=== PATIENT | male | born 1955 | race Caucasian/White ===

== ENCOUNTER 2017-01-11 08:45 | Emergency (ER) | payer BC ==
[2017-01-11] MEDS ORDERED: GABAPENTIN 100 MG CAPSULE PO ONE (10:23)
--- NOTE | 2017-01-11 10:29 | ER Document Report ---
ED General - General Chief Complaint: Leg Pain Stated Complaint: LEG PAIN TRAVEL OUTSIDE OF THE [place] IN LAST 30 DAYS: No - HPI Patient complains to provider of: bilateral chronic leg pain Notes: Patient is coming in for bilateral chronic leg pain over the last 6 months. Patient states he had a procedure performed at [facility] for multiple clots were removed from his leg states since that time his had chronic pain states he is followed up with the surgeon also followed up at local urgent care with no relief of his pain. Of note patient is sitting however able stand and amyloid around the room upon my evaluation. Patient is requesting a prescription for Neurontin. Patient denies any lower back pain numbness tingling. Patient denies any discoloration of his legs denies any trauma. - Related Data Allergies/Adverse Reactions: No Known Allergies Allergy (Unverified 01/11/17 08:57) Past Medical History - Social History Smoking Status: Never Smoker Chew tobacco use (# tins/day): No Frequency of alcohol use: None Drug Abuse: None Family History: Reviewed & Not Pertinent Renal/ Medical History: Denies: Hx Peritoneal Dialysis Past Surgical History: Reports: Hx Vascular Surgery - varicose veins - Immunizations Hx Diphtheria, Pertussis, Tetanus Vaccination: Yes Review of Systems - Review of Systems Constitutional: No symptoms reported EENT: No symptoms reported Cardiovascular: No symptoms reported Respiratory: No symptoms reported Gastrointestinal: No symptoms reported Genitourinary: No symptoms reported Male Genitourinary: No symptoms reported Musculoskeletal: Other - Bilateral leg pain Skin: No symptoms reported Hematologic/Lymphatic: No symptoms reported Neurological/Psychological: No symptoms reported Physical Exam - Vital signs Vitals: Temp Pulse Resp BP Pulse Ox 98.1 F 80 20 174/86 H 98 01/11/17 08:59 01/11/17 08:59 01/11/17 08:59 01/11/17 08:59 01/11/17 08:59 Interpretation: Normal - General General appearance: Appears well, Alert - HEENT Head: Normocephalic, Atraumatic Eyes: Normal Pupils: PERRL - Respiratory Respiratory status: No respiratory distress Chest status: Nontender Breath sounds: Normal Chest palpation: Normal - Cardiovascular Rhythm: Regular Heart sounds: Normal auscultation Murmur: No - Abdominal Inspection: Normal Distension: No distension Bowel sounds: Normal Tenderness: Nontender Organomegaly: No organomegaly - Back Back: Normal, Nontender - Extremities General upper extremity: Normal inspection, Nontender, Normal color, Normal ROM , Normal temperature General lower extremity: Normal inspection, Nontender, Normal color, Normal ROM , Normal temperature, Normal weight bearing, Other - Normal capillary refill no signs of cyanosis bilateral normal dorsalis pedal pulses. No: Monico's sign - Neurological Neuro grossly intact: Yes Cognition: Normal Orientation: AAOx4 [place] Coma Scale Eye Opening: Spontaneous [place] Coma Scale Verbal: Oriented [place] Coma Scale Motor: Obeys Commands Eron Coma Scale Total: 15 Speech: Normal Motor strength normal: LUE, RUE, LLE, RLE Sensory: Normal - Psychological Associated symptoms: Normal affect, Normal mood - Skin Skin Temperature: Warm Skin Moisture: Dry Skin Color: Normal Course - Re-evaluation Re-evalutation: 01/11/17 14:17 Unclear etiology for the patient's chronic pain. Stated that we will start patient on some tramadol and gabapentin. Highly encouraged patient to follow- up with the surgeons and located himself of family physician. A list of family physicians were provided to the patient in the area. - Vital Signs Vital signs: Temp Pulse Resp BP Pulse Ox 98.1 F 64 20 156/90 H 100 01/11/17 10:35 01/11/17 10:35 01/11/17 10:35 01/11/17 10:35 01/11/17 10:35 Discharge - Discharge Clinical Impression: Bilateral leg pain Chronic pain Qualifiers: Chronic pain type: other chronic pain Qualified Code(s): G89.29 - Other chronic pain Condition: Good Disposition: HOME, SELF-CARE Instructions: Leg Pain Nonspecific (OM), Family Physicians / Practices, Oral Narcotic Medication (OM), Chronic Back Pain (OM) Additional Instructions: Take medication as prescribed. Is very important to follow-up with primary care physician for further evaluation of your pain. Prescriptions: Gabapentin [Neurontin 100 mg Capsule] 100 mg PO Q12 #60 capsule Tramadol HCl [Ultram 50 mg Tablet] 50 mg PO ASDIR PRN #14 tablet PRN Reason: Referrals: [facility] [Provider Group] - Follow up as needed
[2017-01-11 10:41] VITALS: BP 156/90
== END 2017-01-11 10:35 | disposition home or self-care (01) ==
LOC: ER 08:45
DX: M79.604 Pain in right leg (principal); M79.605 Pain in left leg; G89.29 Other chronic pain
CPT/HCPCS: 99283

== ENCOUNTER 2017-04-29 11:09 | Observation (INO) | payer BC, MEDICAID ==
[2017-04-29] MEDS ORDERED: HYDROCODONE/ACETAMINOPHEN 5-325 MG TABLET PO ONE (11:58)
--- NOTE | 2017-04-29 12:00 | ER Document Report ---
ED Medical Screen (RME) - General Chief Complaint: Abdominal Pain Stated Complaint: ABDOMINAL PAIN Time Seen by Provider: 04/29/17 11:57 Notes: Patient is a 62-year-old male, unknown past medical history because he has not seen a doctor in several decades, presents with 8 hours of worsening mid abdominal pain that woke him from sleep. Pain is achiness and it is worsening. He has never had this pain in the past. He had a small bowel movement this morning. Denies nausea, vomiting, diarrhea, urinary symptoms, flank pain, chest pain or shortness of breath. PE: diffuse abdominal tenderness, normal bowel sounds, RRR, CTAB I have greeted and performed a rapid initial assessment of this patient. A comprehensive ED assessment and evaluation of the patient, analysis of test results and completion of the medical decision making process will be conducted by additional ED providers. TRAVEL OUTSIDE OF THE [place] IN LAST 30 DAYS: No - Related Data Allergies/Adverse Reactions: No Known Allergies Allergy (Verified 04/29/17 11:11) Home Medications: Current Home Medications No Home Medications 04/29/17 [History] Past Medical History Renal/ Medical History: Denies: Hx Peritoneal Dialysis Past Surgical History: Reports: Hx Vascular Surgery - varicose veins - Immunizations Hx Diphtheria, Pertussis, Tetanus Vaccination: Yes Physical Exam - Vital signs Vitals: Temp Pulse Resp BP Pulse Ox 97.5 F 81 18 159/87 H 98 04/29/17 11:13 04/29/17 11:13 04/29/17 11:13 04/29/17 11:13 04/29/17 11:13 Course - Vital Signs Vital signs: Temp Pulse Resp BP Pulse Ox 97.5 F 81 18 159/87 H 98 04/29/17 11:13 04/29/17 11:13 04/29/17 11:13 04/29/17 11:13 04/29/17 11:13
[2017-04-29 12:55] LABS: ABSOLUTE BASOPHILS # (AUTO) 0.1 10^3/uL (0.0-0.2); ABSOLUTE EOSINOPHILS # (AUTO) 0.3 10^3/uL (0.0-0.6); ABSOLUTE LYMPHOCYTES (AUTO) 1.3 10^3/uL (0.5-4.7); ABSOLUTE MONOCYTES (AUTO) 0.7 10^3/uL (0.1-1.4); ABSOLUTE NEUT (AUTO) 12.3 10^3/uL (1.7-8.2); BASOPHILS % (AUTO) 0.5 % (0-2); EOSINOPHILS % (AUTO) 2.2 % (0-6); HEMATOCRIT 45.9 % (37.9-51.0); HEMOGLOBIN 15.5 g/dL (13.5-17.0); HGB HCT DIFFERENCE 0.6; LYMPHOCYTES % (AUTO) 8.7 % (13-45); MEAN CORPUSCULAR HEMOGLOBIN 29.5 pg (27.0-33.4); MEAN CORPUSCULAR HGB CONC 33.7 g/dL (32.0-36.0); MEAN CORPUSCULAR VOLUME 88 fl (80-97); MONOCYTES % (AUTO) 4.7 % (3-13); RED BLOOD COUNT 5.24 10^6/uL (4.35-5.55); RED CELL DISTRIBUTION WIDTH 13.2 % (11.5-14.0); SEGMENTED NEUTROPHILS % (AUTO) 83.9 % (42-78); WHITE BLOOD COUNT 14.6 10^3/uL (4.0-10.5)
[2017-04-29 13:10] LABS: APPEARANCE,URINE SLIGHTLY-CLOUDY; BILIRUBIN,URINE NEGATIVE (NEGATIVE); GLUCOSE, URINE NEGATIVE (NEGATIVE); KETONES,URINE NEGATIVE (NEGATIVE); LEUKOCYTE ESTERASE,URINE NEGATIVE (NEGATIVE); NITRITE,URINE NEGATIVE (NEGATIVE); PROTEIN,URINE NEGATIVE (NEGATIVE); URINE SPECIFIC GRAVITY 1.019; UROBILINOGEN,URINE NEGATIVE mg/dL (<2.0)
[2017-04-29 13:11] LABS: ALANINE AMINOTRANSFERASE 39 U/L (21-72); ALBUMIN 4.6 g/dL (3.5-5.0); ALKALINE PHOSPHATASE 89 U/L (38-126); ANION GAP 12 (5-19); ASPARTATE AMINO TRANSFERASE 34 U/L (17-59); BILIRUBIN,DIRECT 0.3 mg/dL (0.0-0.4); BILIRUBIN,TOTAL 0.8 mg/dL (0.2-1.3); BLOOD UREA NITROGEN 13 mg/dL (7-20); CALCIUM 9.7 mg/dL (8.4-10.2); CARBON DIOXIDE 28 mmol/L (22-30); CHLORIDE 98 mmol/L (98-107); CREATININE RESULT 0.95 mg/dL (0.52-1.25); GLUCOSE 113 mg/dL (75-110); POTASSIUM 4.9 mmol/L (3.6-5.0); SODIUM 138.3 mmol/L (137-145); TOTAL PROTEIN 8.3 g/dL (6.3-8.2)
--- NOTE | 2017-04-29 13:22 | ER Document Report ---
ED General - General Chief Complaint: Abdominal Pain Stated Complaint: ABDOMINAL PAIN Time Seen by Provider: 04/29/17 11:57 TRAVEL OUTSIDE OF THE [place] IN LAST 30 DAYS: No - HPI Notes: Patient is a 62yo male who presents to the ED c/o abdominal pain that began this morning when it work him up from sleep. Pt states that he was able to eat , drink normally but without any improvement in symptoms. The pain does not radiate and is sharp/achy. Pt states that his pain has been progressively worsening as the day goes on. He did have a normal BM this morning, but states that they are usually hard, small. He did try pepto otc this morning with no relief. Pt does not take any PO medications and has not been seen by a PCM in 10+ years. His PMH is only significant for varicose vein surgical repairs b/l LE's x11. No known drug allergies. Pt denies any recent travel or changes in his diet. No recent illness. Denies any fever, URI, sore throat, headaches, dizziness, cp, syncope, palp, PELAEZ, sob, dyspnea, cough, wheeze, n/v/d, dysuria, hematuria, muscle weakness, or rash. - Related Data Allergies/Adverse Reactions: No Known Allergies Allergy (Verified 04/29/17 11:11) Home Medications: Current Home Medications No Home Medications 04/29/17 [History] Past Medical History - Social History Smoking Status: Never Smoker Family History: Reviewed & Not Pertinent Patient has suicidal ideation: No Patient has homicidal ideation: No Renal/ Medical History: Denies: Hx Peritoneal Dialysis Past Surgical History: Reports: Hx Vascular Surgery - varicose veins - Immunizations Hx Diphtheria, Pertussis, Tetanus Vaccination: Yes Review of Systems - Review of Systems Notes: REVIEW OF SYSTEMS: CONSTITUTIONAL : Denies fever, chills, or sweats. Denies recent illness. EENT: Denies eye, ear, throat, or mouth pain or symptoms. Denies nasal or sinus congestion or discharge. Denies throat, tongue, or mouth swelling or difficulty swallowing. CARDIOVASCULAR: Denies chest pain. Denies palpitations or racing or irregular heart beat. Denies ankle edema. RESPIRATORY: Denies cough, cold, or chest congestion. Denies shortness of breath, difficulty breathing, or wheezing. GASTROINTESTINAL: see hpi GENITOURINARY: Denies difficulty urinating, painful urination, burning, frequency, blood in urine, or discharge. MUSCULOSKELETAL: Denies back or neck pain or stiffness. Denies joint pain or swelling. SKIN: Denies rash, lesions or sores. HEMATOLOGIC : Denies easy bruising or bleeding. LYMPHATIC: Denies swollen, enlarged glands. NEUROLOGICAL: Denies confusion or altered mental status. Denies passing out or loss of consciousness. Denies dizziness or lightheadedness. Denies headache. Denies weakness or paralysis or loss of use of either side. Denies problems with gait or speech. Denies sensory loss, numbness, or tingling. ALL OTHER SYSTEMS REVIEWED AND NEGATIVE. Dictation was performed using [employer] voice recognition software Physical Exam - Vital signs Vitals: Temp Pulse Resp BP Pulse Ox 97.5 F 81 18 159/87 H 98 04/29/17 11:13 04/29/17 11:13 04/29/17 11:13 04/29/17 11:13 04/29/17 11:13 Notes: PHYSICAL EXAMINATION: GENERAL: Well-appearing, well-nourished and in no acute distress. HEAD: Atraumatic, normocephalic. EYES: Pupils equal round and reactive to light, extraocular movements intact, sclera anicteric, conjunctiva are normal. ENT: EAC clear b/l. TM's intact b/l without erythema, fluid, or perforation. Nares patent and without discharge. oropharynx clear without exudates. No tonsilar hypertrophy or erythema. Moist mucous membranes. No sinus tenderness. NECK: Normal range of motion, supple without lymphadenopathy. No rigidity. LUNGS: Breath sounds clear to auscultation bilaterally and equal. No wheezes rales or rhonchi. HEART: Regular rate and rhythm without murmurs, rubs, gallops. ABDOMEN: Soft, non-distended. + tenderness with guarding to the RLQ. + McBurney 's point. Giang negative. Psoas stretch negative. No ascites or pulsatile mass. no bruit's. Musculoskeletal: FROM to passive/active. Strength 5+/5. Extremities: No cyanosis, clubbing, or edema b/l. Peripheral pulses 2+. Capillary refill less than 3 seconds. PSYCH: Normal mood, normal affect. SKIN: Warm, Dry, normal turgor, no rashes or lesions noted. Course - Re-evaluation Re-evalutation: 04/29/17 16:[address] Sharma: Patient is an afebrile, well-hydrated, 62yo male who presents with RLQ tenderness/pain, acute appendicitis based on CT scan and work up. Vitals are stable. CBC showed a 14.6 with a slight left shift. CMP unremarkable. UA unremarkable. 1L NS given IV today. Zosyn IV given. Made NPO. CXR/EKG performed for medical clearance. 2 separate doses of Morphine 5mg IV given. Reviewed with Dr. Chamberlain (surgeon) who will be taking the patient to the OR. Dr. Chamberlain evaluated the patient at approx 1800. - Vital Signs Vital signs: Temp Pulse Resp BP Pulse Ox 97.4 F 87 18 163/74 H 100 04/29/17 15:14 04/29/17 15:14 04/29/17 15:14 04/29/17 15:14 04/29/17 15:14 - Laboratory Result Diagrams: 04/29/17 12:36 04/29/17 12:36 Laboratory results interpreted by me: 04/29/17 04/29/17 12:36 12:36 WBC 14.6 H Seg Neutrophils % 83.9 H Lymphocytes % 8.7 L Absolute Neutrophils 12.3 H Glucose 113 H Total Protein 8.3 H Discharge - Discharge Clinical Impression: Appendicitis Qualifiers: Appendicitis type: acute appendicitis Acute appendicitis type: unspecified acute appendicitis type Qualified Code(s): K35.80 - Unspecified acute appendicitis Condition: Stable Disposition: SAME DAY SURGERY Admitting Provider: Surgicalist - Dr. Chamberlain Unit Admitted: OR
[2017-04-29] MEDS ORDERED: NORMAL SALINE 1000 ML 1,000 ML IV ONE (14:37)
[2017-04-29] MEDS ORDERED: CEFTRIAXONE INJ 1000 MG VIAL IM ONE (14:38)
[2017-04-29] MEDS ORDERED: PIPERACILLIN/TAZOBACTAM 3.375 GM VIAL IV ONE (14:41)
[2017-04-29] MEDS ORDERED: MORPHINE SULFATE 10 MG/ML INJ IV ONE ×2 (14:41→16:21)
[2017-04-29] MEDS ORDERED: CEFTRIAXONE 1 GM/D5W RTU 50 ML IV ONE (14:42)
--- NOTE | 2017-04-29 15:00 | RADIOLOGY REPORT (SQ) ---
EXAM DESCRIPTION: CT ABD/PELVIS WITH IV ONLY COMPLETED DATE/TIME: 04/29/2017 2:33 pm REASON FOR STUDY: RLQ tenderness/pain COMPARISON: None. TECHNIQUE: CT scan of the abdomen and pelvis performed using helical scanning technique with dynamic intravenous contrast injection. No oral contrast. Images reviewed with lung, soft tissue, and bone windows. Reconstructed coronal and sagittal MPR images reviewed. Delayed images for evaluation of the urinary system also acquired. All images stored on PACS. All CT scanners at this facility use dose modulation, iterative reconstruction, and/or weight based d osing when appropriate to reduce radiation dose to as low as reasonably achievable (ALARA). [facility]: Dose Right [facility]: CareDose [facility]: Dose Right [facility]: Teradose 4D [facility]: Green Genes CONTRAST TYPE AND DOSE: contrast/concentration: Isovue 370.00 mg/ml; Total Contrast Delivered: 98.0 ml; Total Saline Delivered: 52.0 ml RENAL FUNCTION: Creatinine 1 BUN 13 RADIATION DOSE: Up-to-date CT equipment and radiation dose reduction techniques were employed. CTDIv ol: 7.8 - 11.0 mGy. DLP: 1044 mGy-cm.. LIMITATIONS: None. FINDINGS: LOWER CHEST: No significant findings. No nodules or infiltrates. LIVER: Normal size. No masses. No dilated ducts. SPLEEN: Normal size. No focal lesions. PANCREAS: No masses. No significant calcifications. No adjacent inflammation or peripancreatic fluid collections. Pancreatic duct not dilated. GALLBLADDER: No identified stones by CT criteria. No inflammatory changes to suggest cholecystitis. ADRENAL GLANDS: No significant masses or asymmetry. RIGHT KIDNEY AND URETER: No solid masses. No significant calcifications. No hydronephrosis or hyd roureter. LEFT KIDNEY AND URETER: No solid masses. No significant calcifications. No hydronephrosis or hydr oureter. AORTA AND VESSELS: No aneurysm. No dissection. Renal arteries, SMA, celiac without stenosis. RETROPERITONEUM: No retroperitoneal adenopathy, hemorrhage or masses. BOWEL AND PERITONEAL CAVITY: Diverticula are scattered through the colon with no acute associated in flammatory changes. APPENDIX: The appendix appears to be thickened to 13 mm. There is stranding in the periappendiceal f at. See axial images 60 through 68. PELVIS: No mass or free fluid. Normal bladder. ABDOMINAL WALL: No masses. No hernias. BONES: No significant or acute findings. OTHER: No other significant finding. IMPRESSION: 1. Appendicitis. 2. Diverticulosis coli. TECHNICAL DOCUMENTATION: JOB ID: [id number] Quality ID # [id number]: Final reports with documentation of one or more dose reduction techniques (e.g., Au tomated exposure control, adjustment of the mA and/or kV according to patient size, use of iterative reconstruction technique) 2010 [employer]- All Rights Reserved
--- NOTE | 2017-04-29 16:11 | RADIOLOGY REPORT (SQ) ---
EXAM DESCRIPTION: CHEST PA/LAT COMPLETED DATE/TIME: 04/29/2017 3:53 pm REASON FOR STUDY: medical clearance for surgery COMPARISON: None. EXAM PARAMETERS: NUMBER OF VIEWS: two views TECHNIQUE: Digital Frontal and Lateral radiographic views of the chest acquired. RADIATION DOSE: NA LIMITATIONS: none FINDINGS: LUNGS AND PLEURA: No opacities, masses or pneumothorax. No pleural effusion. MEDIASTINUM AND HILAR STRUCTURES: No masses or contour abnormalities. HEART AND VASCULAR STRUCTURES: Heart normal size. No evidence for failure. BONES: No acute findings. HARDWARE: None in the chest. OTHER: No other significant finding. IMPRESSION: NO SIGNIFICANT RADIOGRAPHIC FINDING IN THE CHEST. TECHNICAL DOCUMENTATION: JOB ID: [id number] [employer]- All Rights Reserved
--- NOTE | 2017-04-29 18:22 | PDOC H&P ---
History of Present Illness Admission Date/PCP: 04/29/2017 Patient complains of: Right lower quadrant abdominal pain History of Present Illness: LEONELA THOMPSON is a 62 year old male presented to the emergency room this a.m. with complaints of sudden onset of right lower quadrant abdominal pain. Patient stated that he woke up about 3 AM and was having "excruciating pain in his right lower quadrant periumbilical area. He stated that he felt totally normal yesterday. He denied any fever, chills, sweats. The patient stated that he had a bowel movement this morning it was somewhat dark but not melanotic. He stated that his pain increased over the morning and he decided not to go to work because of it. He has not had any vomiting but has had nausea until just a few minutes ago where he began to have episodes of vomiting. The patient underwent a CT scan of the abdomen and pelvis that revealed a 13 mm in diameter appendix with evidence of surrounding periappendiceal stranding. Past Medical History Cardiac Medical History: Reports: None, Other - Venous insufficiency of the lower extremities bilaterally Pulmonary Medical History: Reports: None EENT Medical History: Reports: None Neurological Medical History: Reports: None Endocrine Medical History: Reports: None Renal/ Medical History: Reports: None Malignancy Medical History: Reports: None GI Medical History: Reports: None Musculoskeltal Medical History: Reports: None Skin Medical History: Reports: None Psychiatric Medical History: Reports: None Traumatic Medical History: Reports: None Hematology: Reports: None Infectious Medical History: Reports: None Past Surgical History Past Surgical History: Reports: Vascular Surgery - varicose veins, Other - Cataract surgery Ablation of varicosities lower extremities bilaterally Social History Smoking Status: Former Smoker Frequency of Alcohol Use: Heavy Amount of Alcoholic Beverages Per Day: 1 case of beer per week for 10 years quit in 1976 Hx Recreational Drug Use: Yes - LSD, marijuana Drugs: Marijuana, Other - LSD Family History Family History: Reviewed & Not Pertinent Parental Family History Reviewed: Yes Children Family History Reviewed: No Sibling(s) Family History Reviewed.: No Medication/Allergy Home Medications: No Home Medications 04/29/17 Allergies/Adverse Reactions: No Known Allergies Allergy (Verified 04/29/17 11:11) Review of Systems Constitutional: PRESENT: as per HPI Eyes: ABSENT: visual disturbances Ears: ABSENT: hearing changes Nose, Mouth, and Throat: PRESENT: as per HPI Breasts: PRESENT: as per HPI Cardiovascular: PRESENT: as per HPI Respiratory: PRESENT: as per HPI Gastrointestinal: PRESENT: abdominal pain, nausea, vomiting Genitourinary: ABSENT: dysuria, hematuria Musculoskeletal: ABSENT: joint swelling Integumentary: ABSENT: rash, wounds Neurological: ABSENT: abnormal gait, abnormal speech, confusion, dizziness, focal weakness, syncope Psychiatric: ABSENT: anxiety, depression, homidical ideation, suicidal ideation Endocrine: ABSENT: cold intolerance, heat intolerance, polydipsia, polyuria Hematologic/Lymphatic: ABSENT: easy bleeding, easy bruising Allergic/Immunologic: PRESENT: as per HPI Physical Exam Vital Signs: Temp Pulse Resp BP Pulse Ox 97.4 F 87 18 163/74 H 100 04/29/17 15:14 04/29/17 15:14 04/29/17 15:14 04/29/17 15:14 04/29/17 15:14 Intake & Output 04/28/17 04/29/17 04/30/17 06:59 06:59 06:59 Weight 90 kg General appearance: PRESENT: cooperative, mild distress, well-developed, well- nourished Head exam: PRESENT: atraumatic Eye exam: PRESENT: conjunctiva pink, EOMI, PERRLA. ABSENT: scleral icterus Ear exam: PRESENT: normal external ear exam Mouth exam: PRESENT: moist, tongue midline Neck exam: ABSENT: carotid bruit, JVD, lymphadenopathy, thyromegaly Respiratory exam: PRESENT: clear to auscultation bismark. ABSENT: rales, rhonchi, wheezes Cardiovascular exam: PRESENT: RRR. ABSENT: diastolic murmur, rubs, systolic murmur Pulses: PRESENT: normal dorsalis pedis pul Vascular exam: PRESENT: normal capillary refill GI/Abdominal exam: PRESENT: guarding, hypoactive bowel sounds, tenderness, other - Patient is positive for guarding in the right lower quadrant, periumbilical area, positive McBurney sign, negative psoas sign, negative obturator sign, negative heel tap, negative Rovsing sign Rectal exam: PRESENT: deferred Extremities exam: PRESENT: full ROM. ABSENT: calf tenderness, clubbing, pedal edema Neurological exam: PRESENT: alert, awake, oriented to person, oriented to place , oriented to time, oriented to situation, CN II-XII grossly intact. ABSENT: motor sensory deficit Psychiatric exam: PRESENT: appropriate affect, normal mood. ABSENT: homicidal ideation, suicidal ideation Skin exam: PRESENT: dry, intact, warm. ABSENT: cyanosis, rash Results Laboratory Results: 04/29/17 12:36 04/29/17 12:36 04/29/17 04/29/17 04/29/17 12:36 12:36 12:36 WBC 14.6 H RBC 5.24 Hgb 15.5 Hct 45.9 MCV 88 MCH 29.5 MCHC 33.7 RDW 13.2 Plt Count 300 Seg Neutrophils % 83.9 H Lymphocytes % 8.7 L Monocytes % 4.7 Eosinophils % 2.2 Basophils % 0.5 Absolute Neutrophils 12.3 H Absolute Lymphocytes 1.3 Absolute Monocytes 0.7 Absolute Eosinophils 0.3 Absolute Basophils 0.1 Sodium 138.3 Potassium 4.9 Chloride 98 Carbon Dioxide 28 Anion Gap 12 BUN 13 Creatinine 0.95 Est GFR ( Amer) > 60 Est GFR (Non-Af Amer) > 60 Glucose 113 H Lactic Acid 1.2 Calcium 9.7 Total Bilirubin 0.8 AST 34 ALT 39 Alkaline Phosphatase 89 Total Protein 8.3 H Albumin 4.6 Lipase 74.0 Urine Color Urine Appearance Urine pH Ur Specific [place] Urine Protein Urine Glucose (UA) Urine Ketones Urine Blood Urine Nitrite Ur Leukocyte Esterase Urine WBC (Auto) Urine RBC (Auto) 04/29/17 12:36 WBC RBC Hgb Hct MCV MCH MCHC RDW Plt Count Seg Neutrophils % Lymphocytes % Monocytes % Eosinophils % Basophils % Absolute Neutrophils Absolute Lymphocytes Absolute Monocytes Absolute Eosinophils Absolute Basophils Sodium Potassium Chloride Carbon Dioxide Anion Gap BUN Creatinine Est GFR ( Amer) Est GFR (Non-Af Amer) Glucose Lactic Acid Calcium Total Bilirubin AST ALT Alkaline Phosphatase Total Protein Albumin Lipase Urine Color YELLOW Urine Appearance SLIGHTLY-CLOUDY Urine pH 5.0 Ur Specific [place] 1.019 Urine Protein NEGATIVE Urine Glucose (UA) NEGATIVE Urine Ketones NEGATIVE Urine Blood NEGATIVE Urine Nitrite NEGATIVE Ur Leukocyte Esterase NEGATIVE Urine WBC (Auto) 1 Urine RBC (Auto) 0 Impressions: Abdomen/Pelvis CT 04/29/17 13:16 IMPRESSION: 1. Appendicitis. 2. Diverticulosis coli. Chest X-Ray 04/29/17 15:29 IMPRESSION: NO SIGNIFICANT RADIOGRAPHIC FINDING IN THE CHEST. Status: Image reviewed by me - Appendix appears to be retrocecal Assessment & Plan - Time Time Spent: 50 to 70 Minutes Medications reviewed and adjusted accordingly: Yes Anticipated discharge: Home Within: within 24 hours Assessment/Plan - Assessment/Plan Assessment: Acute appendicitis Plan: Laparoscopic appendectomy possible conventional appendectomy The possible risks and complications of procedure were reviewed with the patient including bleeding, infection, injury to bowel, bladder, major arteries or veins, solid or hollow organs, abscess, delayed abscess, leak from appendiceal stump staple line, . He understands accepts the possible risk and complication of the procedure.
[2017-04-29] MEDS ORDERED: LIDOCAINE 1%/EPINEPHRINE INJ 20 ML VIAL ONE (18:41)
[2017-04-29] MEDS ORDERED: MIDAZOLAM 2 MG/2 ML INJ ONE (18:57)
[2017-04-29] MEDS ORDERED: PROPOFOL INJ 200 MG/20 ML VIAL IV ONE (18:57)
[2017-04-29] MEDS ORDERED: MORPHINE SULFATE 10 MG/ML INJ ONE (18:57)
[2017-04-29] MEDS ORDERED: FENTANYL CITRATE INJ/PF 250 MCG/5 ML AMPULE ONE (18:57)
[2017-04-29] MEDS ORDERED: PROMETHAZINE HCL INJ 25 MG/1 ML VIAL IV PRN ×2 (19:46)
[2017-04-29] MEDS ORDERED: MORPHINE SULFATE 10 MG/ML INJ IV PRN (19:46)
[2017-04-29] MEDS ORDERED: MEPERIDINE HCL/PF INJ 25 MG/1 ML DISP.SYRIN IV PRN (19:46)
[2017-04-29] MEDS ORDERED: DIPHENHYDRAMINE HCL 50 MG/ML VIAL IV PRN (19:46)
[2017-04-29] MEDS ORDERED: OXYCODONE-ACETAMINOPHEN 5-325 MG TABLET PO PRN ×3 (19:46→20:38)
[2017-04-29] MEDS ORDERED: FENTANYL CITRATE INJ/PF 100 MCG/2 ML AMPUL IV PRN ×3 (19:46)
--- NOTE | 2017-04-29 20:37 | Operative Report ---
Operative Report DATE OF SURGERY: 04/29/17 PREOPERATIVE DIAGNOSIS: Acute appendicitis, retrocecal POSTOPERATIVE DIAGNOSIS: Acute suppurative appendicitis OPERATION: Laparoscopic appendectomy SURGEON: GIOVANY MORALEZ 1ST CEO AND PRESIDENT: LATRICE GALAN ANESTHESIA: GA TISSUE REMOVED OR ALTERED: Appendix COMPLICATIONS: None ESTIMATED BLOOD LOSS: 5cc INTRAOPERATIVE FINDINGS: Acute appendicitis, retrocecal with a good deal of purulent fluid surrounding the right colonic gutter and overlying the terminal ileum as well as in the pelvis PROCEDURE: 04/29/2017 this 62-year-old white male was taken the operating placed supine position after adequate general anesthesia via endotracheal tube was prepped with DuraPrep draped in sterile fashion. An infraumbilical incision was made with a scalpel through skin subtenons tissue. A Veress needle was advanced all the way of the abdomen with the anterior abdominal wall elevated between the surgeon and investigative assistant fingers. The Veress needle was aspirated with 3 cc syringe there was no blood or bile fluid aspirated. A pneumoperitoneum was then created with approximately 4.5 L carbon dioxide. The varies needle was then removed and a 10 mm Optiview trocar through trocar sleeve was advanced all layers of the abdomen under direct visualization through the laparoscope. Once into the peritoneal cavity the laparoscope and trocar removed and the laparoscope was reinserted through the sleeve. Patient was placed in the Trendelenburg position and rotated to the left. A 5 mm trocar through trocar sleeve was placed in the right lower quadrant at McBurney's point under direct visualization to the laparoscope. Trocar removed and a [place] laparoscopic forceps advanced to the sleeve. A 12 mm trocar through trocar sleeve was then placed in the left lower quadrant lateral to the anterior rectus muscle which was transilluminated to reveal the superficial epigastric vessels which were kept out of harm's way. The trocar was inserted under direct visualization to laparoscope the trocar removed and the LigaSure advance of the sleeve. The small bowel was then moved in a cephalad position above the cecum. The tip of the appendix was then noted in the right colonic gutter. It was grasped and placed on traction and found to be retro-cecal and retroperitoneal. Currently the peritoneum was incised utilizing the LigaSure. It was bluntly dissected cephalad and caudad exposing the midportion of the appendix as it coursed toward the cecum. Once this area was identified the mesoappendix was then divided utilizing LigaSure toward the avascular window at the base of the appendix. Finally the avascular window was opened and the remaining mesial appendix with appendiceal artery was treated with the ultrasonic device and divided. A Endo PHUC was then advanced to the 12 mm trocar port and fired across the base of the appendix. Once fired the stapling device was removed the appendix placed in a [place] bag and removed out the 12 mm trocar port site. It was passed off the operative field and sent to pathology for further evaluation. The staple line was then inspected and irrigated with no evidence of leak noted. There was no bleeding noted. The large amount of purulent drainage was then collected in the Luken's trap passed off the operative field sent to pathology and microbiology for Gram stain C&S. The abdomen was then irrigated with approximately 2 L of saline solution and evacuated with pool suction care taken to aspirate all the fluid in the right hepatic gutter perihepatic space in the pelvis. Once this was performed the patient was placed in the supine position the 5 mm trochars removed under direct visualization to the laparoscope. The pneumoperitoneum was relieved the 12 mm trocar removed under direct visualization to the laparoscope there is no bleeding or omentum withdrawn with the instrument and finally the infraumbilical trocar sleeve removed under direct visualization to laparoscope there was no omentum or bowel withdrawal of the instrument. Attention was turned to the incision in the left lower quadrant a 2-0 Vicryl suture was placed as a single interrupted suture along the external oblique fascia. The skin edges then approximated utilizing interrupted subcuticular sutures of 4-0 Monocryl Steri-Strips were placed of the wound patient taken off the operating table placed on a cart and taken to the recovery area in satisfactory condition Gross pathology: 62-year-old white male presented with pain since this a.m. CT scan revealing acute appendicitis. It was noted to be retrocecal and possibly retroperitoneal. Operative pathology: Included a retroperitoneal retrocecal appendix with a good deal of purulent suppurative fluid within the abdominal cavity especially in the right gutter and in between the bowel loops as they course toward the terminal ileum. The remaining intra-abdominal structures appeared normal under limited laparoscopic exam. The appendix was large in diameter but without evidence of perforation.
[2017-04-29] MEDS ORDERED: ONDANSETRON HCL INJ/PF 4 MG/2 ML SDV IV PRN (20:38)
[2017-04-29] MEDS ORDERED: NORMAL SALINE 1000 ML 1,000 ML IV PRN (20:38)
[2017-04-29] MEDS ORDERED: ACETAMINOPHEN 325 MG TABLET PO PRN (20:38)
[2017-04-29] MEDS ORDERED: HYDROMORPHONE HCL INJ/PF 2 MG/ML AMPULE IV PRN (20:47)
[2017-04-29] MEDS ORDERED: NALOXONE HCL INJ/PF 0.4 MG/1 ML SDV ONE (20:48)
[2017-04-29] MEDS ORDERED: METOCLOPRAMIDE HCL INJ/PF 10 MG/2 ML SDV ONE (21:00)
[2017-04-29] MEDS ORDERED: LIDOCAINE 0.5%/EPINEPHRINE INJ 50 ML VIAL ONE (21:01)
[2017-04-29] MEDS ORDERED: ONDANSETRON HCL INJ/PF 4 MG/2 ML SDV ONE (21:01)
[2017-04-29] MEDS ORDERED: PROMETHAZINE HCL INJ 25 MG/1 ML VIAL ONE (21:22)
--- NOTE | 2017-04-29 21:25 | EKG REPORT ---
SEVERITY:- NORMAL ECG - SINUS RHYTHM : Confirmed by: Radha Jacobo 29-Apr-2017 21:24:42
[2017-04-29] MEDS ORDERED: CIPROFLOXACIN 400 MG/D5W RTU 400 MG/200 ML RTUPB IV ONE (23:06)
[2017-04-29] MEDS ORDERED: METRONIDAZOLE 500 MG/NS RTU 100 ML IV ONE ×2 (23:06→23:07)
[2017-04-29] MEDS: METRONIDAZOLE 500 MG/NS RTU 100 ML IV SCH (23:12)
[2017-04-29] MEDS: CIPROFLOXACIN 400 MG/D5W RTU 200 ML IV SCH (23:12)
[2017-04-30] MEDS: METRONIDAZOLE 500 MG/NS RTU 100 ML IV SCH ×3 (05:03→21:03)
[2017-04-30] MEDS ORDERED: SUCCINYLCHOLINE CHLORIDE INJ 200 MG/10 ML VIAL ONE (08:41)
[2017-04-30] MEDS ORDERED: DEXAMETHASONE SOD PHOSPHATE INJ 4 MG/1 ML VIAL ONE (08:41)
[2017-04-30] MEDS ORDERED: GLYCOPYRROLATE INJ 0.4 MG/2 ML VIAL ONE (08:41)
[2017-04-30] MEDS ORDERED: ONDANSETRON HCL INJ/PF 4 MG/2 ML SDV ONE (08:41)
[2017-04-30] MEDS ORDERED: ROCURONIUM BROMIDE INJ 50 MG/5 ML VIAL IV ONE (08:41)
[2017-04-30] MEDS ORDERED: NEOSTIGMINE METHYLSULFATE 10 MG/10 ML VIAL ONE (08:41)
[2017-04-30] MEDS: CIPROFLOXACIN 400 MG/D5W RTU 200 ML IV SCH ×2 (09:11→21:52)
--- NOTE | 2017-04-30 09:45 | PDOC PROGRESS REPORT ---
Subjective Progress Note for:: 04/30/17 Subjective:: Had some nausea and some generalized weakness. Does not want to go home. Pain is much improved. Physical Exam Vital Signs: Temp Pulse Resp BP Pulse Ox 98.1 F 80 18 110/59 L 98 04/30/17 07:05 04/30/17 07:05 04/30/17 07:05 04/30/17 07:05 04/30/17 07:05 Intake & Output 04/29/17 04/30/17 05/01/17 06:59 06:59 06:59 Intake Total 1875 Output Total 0 Balance 1875 Weight 89.6 kg General appearance: PRESENT: no acute distress, cooperative Respiratory exam: PRESENT: clear to auscultation [place] Cardiovascular exam: PRESENT: RRR GI/Abdominal exam: PRESENT: other - Soft, nondistended, minimal abdominal tenderness. Wounds clean dry and intact. Results Impressions: Abdomen/Pelvis CT 04/29/17 13:16 IMPRESSION: 1. Appendicitis. 2. Diverticulosis coli. Chest X-Ray 04/29/17 15:29 IMPRESSION: NO SIGNIFICANT RADIOGRAPHIC FINDING IN THE CHEST. Assessment & Plan - Diagnosis (1) Appendicitis Qualifiers: Appendicitis type: acute appendicitis Acute appendicitis type: unspecified acute appendicitis type Qualified Code(s): K35.80 - Unspecified acute appendicitis Is this a current diagnosis for this admission?: YesPlan: Status post laparoscopic appendectomy. Looks reasonably well. Encourage ambulation. Hold off diet until his nausea has resolved. Keep on IV antibiotics in light of the pus found during surgery.
[2017-04-30 21:32] LABS: HEMATOCRIT 36.9 % (37.9-51.0); HGB HCT DIFFERENCE -1.2; MEAN CORPUSCULAR HEMOGLOBIN 28.9 pg (27.0-33.4); MEAN CORPUSCULAR HGB CONC 32.4 g/dL (32.0-36.0); MEAN CORPUSCULAR VOLUME 89 fl (80-97); RED BLOOD COUNT 4.12 10^6/uL (4.35-5.55); RED CELL DISTRIBUTION WIDTH 13.5 % (11.5-14.0)
[2017-04-30 21:45] LABS: HEMOGLOBIN 11.9 g/dL (13.5-17.0)
[2017-04-30 21:47] LABS: BAND NEUTROPHILS % (MANUAL) 3 % (3-5); BASOPHILS % (MANUAL) 0 % (0-2); EOSINOPHILS % (MANUAL) 0 % (0-6); LYMPHOCYTES % (MANUAL) 8 % (13-45); TOTAL CELLS COUNTED 100
[2017-04-30 21:48] LABS: RBC MORPHOLOGY COMMENT NORMO-CYTIC/CHROMIC
[2017-04-30 21:50] LABS: TOXIC GRANULATION SLIGHT
[2017-05-01] MEDS: METRONIDAZOLE 500 MG/NS RTU 100 ML IV SCH (05:17)
--- NOTE | 2017-05-01 10:34 | PDOC DISCHARGE SUMMARY ---
General - Admit/Disc Date/PCP Admission Date/Primary Care Provider: 04/29/17 20:38 Discharge Date: 05/01/17 - Discharge Diagnosis (1) Appendicitis Is this a current diagnosis for this admission?: YesSummary: Patient underwent laparoscopic appendectomy on 04/29/2017. His postoperative course was uneventful. She is able to tolerate a soft diet on the day of discharge and passing a lot of flatus under date of discharge also a note was given to him for return to work. Also prescription for Percocet 1 every 6 hours as needed for pain. Patient is going to be seen in the surgical clinic in 2 weeks. - Additional Information Resuscitation Status: Full Code Discharge Diet: Regular Discharge Activity: No Driving, No Lifting Over 10 Pounds, No Lifting/Push/ Pulling, Slowly Increase Activity Home Medications: Oxycodone HCl/Acetaminophen [Percocet 5-325 mg Tablet] 1 tab PO Q6HP PRN #15 tablet 05/01/17 History of Present Illness Patient complains of: Complaint of abdominal pains just prior to admission. History of Present Illness: LEONELA THOMPSON is a 62 year old male Complaining of abdominal pain just prior to going to the emergency room. CAT scan in the emergency room showed acute appendicitis. Patient was then taken to the OR for laparoscopic appendectomy on 04/29/2017. His postoperative course was uneventful and tolerating regular diet on 04/29/2017. Also had large flatus on the day of discharge. Physical Exam Vital Signs: Temp Pulse Resp BP Pulse Ox 97.2 F 89 16 122/65 94 05/01/17 07:12 05/01/17 07:12 05/01/17 07:12 05/01/17 07:12 05/01/17 07:12 Intake & Output 04/30/17 05/01/17 05/02/17 06:59 06:59 06:59 Intake Total 1875 3272 Output Total 0 750 Balance 1875 2522 Weight 89.6 kg 90.1 kg Exam: Admission had tenderness in the right lower quadrant compatible with acute appendicitis. Results Laboratory Results: 04/30/17 21:00 04/30/17 21:00 WBC 21.0 H RBC 4.12 L Hgb 11.9 L D Hct 36.9 L MCV 89 MCH 28.9 MCHC 32.4 RDW 13.5 Plt Count 216 Seg Neutrophils % Not Reportable Lymphocytes % Not Reportable Monocytes % Not Reportable Eosinophils % Not Reportable Basophils % Not Reportable Absolute Neutrophils Not Reportable Absolute Lymphocytes Not Reportable Absolute Monocytes Not Reportable Absolute Eosinophils Not Reportable Absolute Basophils Not Reportable Impressions: Abdomen/Pelvis CT 04/29/17 13:16 IMPRESSION: 1. Appendicitis. 2. Diverticulosis coli. Chest X-Ray 04/29/17 15:29 IMPRESSION: NO SIGNIFICANT RADIOGRAPHIC FINDING IN THE CHEST. Qualifiers PATEINT BEING DISCHARGED WITH ANY OF THE FOLLOWING DIAGNOSIS?: No
[2017-05-01] MEDS: CIPROFLOXACIN 400 MG/D5W RTU 200 ML IV SCH (10:52)
[2017-05-01 13:27] VITALS: BP 130/72
== END 2017-05-01 14:06 | disposition home or self-care (01) ==
LOC: ER 11:09 → EH 18:35 → UNDOADMOB 18:35 → INTOOBSV 18:35 → EH 20:38 → 4N 22:19
PROC: 0DTJ4ZZ Resection of Appendix, Percutaneous Endoscopic Approach (ICD-10-PCS; principal; 2017-04-29 19:00)
DX: K35.80 Unspecified acute appendicitis (principal); R14.3 Flatulence; K57.90 Diverticulosis of intestine, part unspecified, without perforation or abscess without bleeding; Z87.891 Personal history of nicotine dependence; F16.90 Hallucinogen use, unspecified, uncomplicated; F12.90 Cannabis use, unspecified, uncomplicated
CPT/HCPCS: 93005; 96376; 99285; 96375; 96365; 36415 ×2; 87205; 87070; 83605; 83690; 85025 ×2; 87075; 87077; 80053; 81001; 87186; 88304 ×2; 71020; 74177; 94799; 93010; 44970; G0378 ×4; J2250; J3490 ×2; J1100; J3010; J2765; J2270; J2310; J1170; J2550; J0330; J2405 ×2; J7030; J2704; J0744 ×2; J2543; 840

== ENCOUNTER 2017-10-21 12:34 | Emergency (ER) | payer MEDICAID ==
[2017-10-21] MEDS ORDERED: IBUPROFEN 800 MG TABLET PO ONE (13:43)
--- NOTE | 2017-10-21 15:55 | ER Document Report ---
ED General - General Chief Complaint: Arm Pain Stated Complaint: ARM PAIN Time Seen by Provider: 10/21/17 13:23 TRAVEL OUTSIDE OF THE [place] IN LAST 30 DAYS: No - Related Data Allergies/Adverse Reactions: No Known Allergies Allergy (Verified 10/21/17 12:35) Past Medical History - General Information source: Patient - Social History Smoking Status: Former Smoker Cigarette use (# per day): No Chew tobacco use (# tins/day): No Smoking Education Provided: No Frequency of alcohol use: None Drug Abuse: None Lives with: Family Family History: Reviewed & Not Pertinent Patient has suicidal ideation: No Patient has homicidal ideation: No - Past Medical History Cardiac Medical History: Reports: None Pulmonary Medical History: Reports: Other - Electric wire through his chest EENT Medical History: Reports: Eyes - Nails to both eyes but did not lose vision Neurological Medical History: Reports: None Endocrine Medical History: Reports: None Renal/ Medical History: Reports: None Malignancy Medical History: Reports None GI Medical History: Reports: None Musculoskeltal Medical History: Reports Hx Arthritis, Reports Hx Musculoskeletal Deformity, Reports Hx Musculoskeletal Trauma, Reports Other - pole into his shoulder dislocating his shoulder, Psychiatric Medical History: Denies: Hx Depression Past Surgical History: Reports: Hx Appendectomy, Hx Vascular Surgery - varicose veins, Other - Cataract surgery Ablation of varicosities lower extremities bilaterally - Immunizations Hx Diphtheria, Pertussis, Tetanus Vaccination: Yes Review of Systems - Review of Systems Constitutional: No symptoms reported EENT: No symptoms reported Cardiovascular: No symptoms reported Respiratory: No symptoms reported Gastrointestinal: No symptoms reported Genitourinary: No symptoms reported Male Genitourinary: No symptoms reported Musculoskeletal: Back pain, Other - Intermittent pain down right arm both legs and hips no fall no injuries Skin: No symptoms reported Hematologic/Lymphatic: No symptoms reported Neurological/Psychological: No symptoms reported Physical Exam - Vital signs Vitals: Temp Pulse Resp BP Pulse Ox 98.3 F 80 20 155/90 H 97 10/21/17 12:49 10/21/17 12:49 10/21/17 12:49 10/21/17 12:49 10/21/17 12:49 Interpretation: Normal - General General appearance: Appears well, Alert - HEENT Head: Normocephalic, Atraumatic Eyes: Normal Pupils: PERRL - Respiratory Respiratory status: No respiratory distress Chest status: Nontender Breath sounds: Normal Chest palpation: Normal - Cardiovascular Rhythm: Regular Heart sounds: Normal auscultation Murmur: No - Abdominal Inspection: Normal Distension: No distension Bowel sounds: Normal Tenderness: Nontender Organomegaly: No organomegaly - Back Back: Normal, Tender, Vertebra tenderness. No: Deformity/step-off, CVA tenderness, Scars, Scoliosis, Other Notes: No signs of cauda equina, no loss of control of bowel bladder, no loss of sensation to the legs, no saddle anesthesia, and no loss of control of the legs. - Extremities General upper extremity: Normal inspection, Nontender, Normal color, Normal ROM , Normal temperature General lower extremity: Normal inspection, Nontender, Normal color, Normal ROM , Normal temperature, Normal weight bearing. No: Monico's sign - Neurological Neuro grossly intact: Yes Cognition: Normal Orientation: AAOx4 [place] Coma Scale Eye Opening: Spontaneous [place] Coma Scale Verbal: Oriented [place] Coma Scale Motor: Obeys Commands Eron Coma Scale Total: 15 Speech: Normal Motor strength normal: LUE, RUE, LLE, RLE Sensory: Normal - Psychological Associated symptoms: Normal affect, Normal mood - Skin Skin Temperature: Warm Skin Moisture: Dry Skin Color: Normal Course - Re-evaluation Re-evalutation: 10/21/17 16:16 Patient given instructions on his care for his degenerative back disease with arthritis. Patient was given a copy of his x-rays to follow-up with his primary doctor and with a back specialist. He was encouraged to use anti- inflammatories ice heat and back exercises. - Vital Signs Vital signs: Temp Pulse Resp BP Pulse Ox 98.3 F 80 20 155/90 H 97 10/21/17 12:49 10/21/17 12:49 10/21/17 12:49 10/21/17 12:49 10/21/17 12:49 - Diagnostic Test Radiology reviewed: Image reviewed, Reports reviewed Discharge - Discharge Clinical Impression: Pain in right arm, Degenerative disc disease, cervical Low back pain with bilateral sciatica Qualifiers: Chronicity: chronic Back pain laterality: bilateral Qualified Code(s): M54.42 - Lumbago with sciatica, left side; M54.41 - Lumbago with sciatica, right side; M54.41 - Lumbago with sciatica, right side; G89.29 - Other chronic pain; G89.29 - Other chronic pain Condition: Stable Disposition: HOME, SELF-CARE Instructions: Family Physicians / Practices Additional Instructions: You were seen today for complaint of pain in your right arm and down both legs and hips. He states this is been going on for several months. He denies any fall or injuries. He did had your appendix taken out earlier this year. Your x -ray showed degenerative changes in the cervical area and the lumbar area which would be causing pain to your arms and legs. You will need to follow-up with a back specialist. Ibuprofen will help with the inflammation. Laying in the bed all the time actually increases your pain not decreases her pain. Movement and exercise will help you walking gradually increase in the length of time he walk until you get up to 3 miles a day would be improve your back and leg pain. Anti-Inflammatory Medication You have received a prescription for an antiinflammatory agent. This is an excellent, safe drug for pain control. In addition, it has potent antiinflammatory effects which are beneficial, especially in the treatment of injuries, arthritis, or tendonitis. It's best to take this medicine with food. Persons with ulcer disease or allergy to aspirin should notify their physician of this before taking this drug. Take the medication exactly as prescribed. Don't take additional doses unless instructed to do so by your doctor. If you develop wheezing, shortness of breath, hives, faintness, stomach pain, vomiting, or dark black stools, return for re-evaluation at once. Stretching Exercises for the Back The physician has recommended that you begin stretching exercises for your back. These are often used even while the back is painful. However, you should notify the physician if the activities seem to increase your pain. PELVIC TILT: Lie flat on your back with knees bent. Tighten your stomach and buttock muscles so it flattens your lower back against the floor. Hold 10 seconds. Repeat 10 times, twice daily. KNEE RAISE: Lying on the back with knees bent, raise one knee to your chest, then the other. Hold both knees against the chest 10 seconds, then lower one knee at a time. Repeat 10 times, twice daily. PARTIAL TRUNK RAISE: Lie face down, arms at your sides. Keeping your waist on the floor, use your arms raise your chest up. Support yourself on your elbows for 30 seconds. Repeat twice daily, increasing the time to two minutes as you recover. Exercise Program for the Shoulder Since the shoulder moves in so many directions, the joint attachment is weak. Muscles provide most of the stability to the shoulder. You must exercise your shoulder to prevent painful instability or stiffening. PASSIVE - These may be begun within a few days of the injury. While standing, lean forward, allowing the arm to hang down towards the floor. Move the arm in small circles while slowly twisting your chest towards and away from the hanging arm. Do this for one minute. ACTIVE - These may be performed when the doctor gives permission. Begin with the arms at the sides. Raise the arms forward (shoulder's width apart) until they reach shoulder level. Then slowly swing both arms back until they are aiming straight out away from each other. Then bring them forward again, and finally, lower them to your sides. Repeat 20 to 30 times. As you improve, put weights in your hands for the exercise. Start with one pound, and work up to 10 pounds. Never use more than is comfortable. Athletes may work up to 30 pounds. USE OF TYLENOL (ACETAMINOPHEN): Acetaminophen may be taken for pain relief or fever control. It's much safer than aspirin, offering a wider range of "safe" dosages. It is safe during . Some brand names are Tylenol, Panadol, Datril, Anacin 3, Tempra, and Liquiprin. Acetaminophen can be repeated every four hours. The following are maximum recommended dosages: WEIGHT Dose Drops Elixir Chewable( 80mg) (LBS.) drprs=droppers tsp=teaspoon 6 40 mg 0.4 ml (1/2) 6-11 80 mg 0.8 ml (full) tsp 1 tab 12-16 120 mg 1 1/2 drprs 3/4 tsp 1 1/2 tabs 17-23 160 mg 2 drprs 1 tsp 2 tabs 24-30 240 mg 3 drprs 1 1/2 tsp 3 tabs 30-35 320 mg 2 tsp 4 tabs 36-41 360 mg 2 1/4 tsp 4 1/2 tabs 42-47 400 mg 2 1/2 tsp 5 tabs 48-53 480 mg 3 tsp 6 tabs 54-59 520 mg 3 1/4 tsp 6 1/2 tabs 60-64 560 mg 3 1/2 tsp 7 tabs 65-70 600 mg 3 3/4 tsp 7 1/2 tabs 71-76 640 mg 4 tsp 8 tabs 77-82 720 mg 4 1/2 tsp 9 tabs 83-88 800 mg 5 tsp 10 tabs >89 pounds or adults 650 mg to 900 mg Acetaminophen can be repeated every four hours. Maximum dose not to exceed 4000 mg a day. These maximum recommended dosages are slightly higher than the dosages written on the product container, but these dosages are very safe and below the toxic dosage for acetaminophen. ICE PACKS: Apply ice packs frequently against the painful area. Many different schedules are recommended, such as "20 minutes on, 20 minutes off" or "one hour ice, two hours rest." If you need to work, you may need to go longer between ice treatments. You should plan to have the area ice packed AT LEAST one fourth of the time. The ice should be applied over the wrap, tape, or splint, or over a layer of cloth -- not directly against the skin. Some ice bags have a built-in cloth and can be put directly on the skin. WARM PACKS: After approximately two days, apply gentle heat (such as a heating pad or hot water bottle) for about 20 to 30 minutes about every two hours -- at least four times daily. Warmth and elevation will help you make a more rapid recovery , and will ease the pain considerably. Do not use HOT heat, and never apply heat for longer than 30 minutes. The continuous heat can invisibly damage skin and muscles -- even when no burn is seen on the surface. Damaged muscles can make you MORE sore. FOLLOW-UP CARE: If you have been referred to a physician for follow-up care, call the physician s office for an appointment as you were instructed or within the next two days. If you experience worsening or a significant change in your symptoms, notify the physician immediately or return to the Emergency Department at any time for re-evaluation. Forms: Elevated Blood Pressure Referrals: BRIGITTE LORENZANA MD [ASSOCIATE] - Follow up as needed
--- NOTE | 2017-10-21 15:55 | RADIOLOGY REPORT (SQ) ---
EXAM DESCRIPTION: CERV SP 4 OR 5 VIEWS COMPLETED DATE/TIME: 10/21/2017 3:36 pm REASON FOR STUDY: pain and intermittent numbness to arms and legs COMPARISON: None. NUMBER OF VIEWS: Five views. TECHNIQUE: AP, lateral, obliques and odontoid radiographic images acquired of the cervical spine. LIMITATIONS: None. FINDINGS: MINERALIZATION: Normal. ALIGNMENT: Anatomic. VERTEBRAE: Vertebral bodies of normal height. DISCS: Mild disc space loss of height at C5-6 and C6-7 FORAMINA: Mild bilateral C3-4 foraminal narrowing, mild left C4-5 foraminal narrowing from facet and uncovertebral hypertrophy. LATERAL AND POSTERIOR ELEMENTS: Facets, lateral masses and spinous processes without significant find ings. HARDWARE: None in the spine. SOFT TISSUES: No masses or calcifications. Lung apices clear. OTHER: No other significant finding. IMPRESSION: No acute fracture or malalignment. Mild degenerative disc changes at C5-6 and C6-7. Mild bilateral C3-4 foraminal narrowing, mild left C4-5 foraminal narrowing TECHNICAL DOCUMENTATION: JOB ID: [id number]- All Rights Reserved
--- NOTE | 2017-10-21 15:57 | RADIOLOGY REPORT (SQ) ---
EXAM DESCRIPTION: L SPINE WHOLE COMPLETED DATE/TIME: 10/21/2017 3:36 pm REASON FOR STUDY: pain and intermittent numbness to arms and legs COMPARISON: None. NUMBER OF VIEWS: Five views including obliques. TECHNIQUE: AP, lateral, oblique, and sacral radiographic images acquired of the lumbar spine. LIMITATIONS: None. FINDINGS: MINERALIZATION: Normal. SEGMENTATION: Normal. No transitional anatomy. ALIGNMENT: Normal. VERTEBRAE: Maintained height. No fracture or worrisome bone lesion. DISCS: Mild disc space loss of height with anterior osteophyte formation at T12-L1, L1-2, L2-3, and L 3-4 POSTERIOR ELEMENTS: Pedicles and facets are intact. No pars defect or posterior arch defects. Mild bilateral facet arthropathy at L4-5 and L5-S1 HARDWARE: None in the spine. PARASPINAL SOFT TISSUES: Normal. PELVIS: Intact as visualized. No fractures or worrisome bone lesions. SI joints intact. OTHER: No other significant finding. IMPRESSION: Mild degenerative changes as above TECHNICAL DOCUMENTATION: JOB ID: [id number] [employer]- All Rights Reserved
[2017-10-21 16:41] VITALS: BP 147/84
== END 2017-10-21 16:39 | disposition home or self-care (01) ==
LOC: ER 12:34
DX: M50.30 Other cervical disc degeneration, unspecified cervical region (principal); M54.41 Lumbago with sciatica, right side; M54.42 Lumbago with sciatica, left side; G89.29 Other chronic pain; M79.601 Pain in right arm; M79.604 Pain in right leg; M79.605 Pain in left leg; Z87.891 Personal history of nicotine dependence
CPT/HCPCS: 99283; 72050; 72110; J3490